=== PATIENT | male | born 1960 | race Caucasian/White ===

== ENCOUNTER 2018-01-30 21:26 | Emergency (ER) | payer MEDICARE ==
[~2018-01-30] VITALS: Ht 177.8 cm; Wt 70.0 kg
[2018-01-30 23:10] VITALS: BP 128/70
== END 2018-01-30 23:15 | disposition home or self-care (01) ==
LOC: ED 23:09
DX: F10.120 Alcohol abuse with intoxication, uncomplicated (principal); Z72.9 Problem related to lifestyle, unspecified; I25.2 Old myocardial infarction
CPT/HCPCS: 36415; 80307; 99283

== ENCOUNTER 2018-03-08 17:40 | Inpatient (IN) | payer MEDICARE ==
[~2018-03-08] VITALS: Ht 177.8 cm; Wt 85.2 kg
[2018-03-08] MEDS ORDERED: ONDANSETRON ODT 4 MG PO ONE (18:00)
--- NOTE | 2018-03-08 18:47 | NUR ---
PT C/O ABD PAIN FOR 2 DAYS WITH NO BM FOR 3 DAYS. PT ALSO C/O N/V FOR 2 DAYS WELL. ABDOMEN IS DISTENEDED AND PT DRINKS 6 BEERS A DAY.
--- NOTE | 2018-03-08 18:48 | NUR ---
2 VIEW ABDOMEN SUGGEST OBSTRUCTION, CT ORDERED.
[2018-03-08 18:50] LABS: MEAN CORPUSCULAR HEMOGLOBIN 35.5 pg (27.5-34.5); MEAN CORPUSCULAR HGB CONC 35.2 g/dL (33.2-36.2); MEAN CORPUSCULAR VOLUME 100.8 fL (81-97); MEAN PLATELET VOLUME 9.5 fL (7.4-10.4); PLATELET COUNT 213 x10^3/uL (130-400); RED BLOOD COUNT 4.35 x10^6/uL (4.38-5.82); RED CELL DISTRIBUTION WIDTH 14.3 % (9.4-14.8)
[2018-03-08 19:02] LABS: ALANINE AMINOTRANSFERASE 39 U/L (12-78); ALBUMIN 3.6 g/dL (3.4-5.0); ANION GAP 10 mmol/L (5-15); CALCIUM 8.8 mg/dL (8.5-10.1); CHLORIDE 95 mmol/L (98-107); CREATININE 0.89 mg/dL (0.7-1.3)
--- NOTE | 2018-03-08 19:03 | NUR ---
PAIN MEDS REQUESTED OF DR. BRODY.
[2018-03-08 19:04] LABS: ALKALINE PHOSPHATASE 128 U/L (45-117); BILIRUBIN,TOTAL 0.9 mg/dL (0.2-1.0); TOTAL PROTEIN 8.1 g/dL (6.4-8.2)
[2018-03-08 19:19] LABS: BASOPHILS # (AUTO) 0.03 x10^3/uL (0-0.1); BASOPHILS % (AUTO) 0 % (0-1); EOSINOPHILS # (AUTO) 0.04 x10^3/uL (0-0.4); EOSINOPHILS % (AUTO) 0 % (1-7); LYMPHOCYTES # (AUTO) 1.65 x10^3/uL (1-3.4); LYMPHOCYTES % (AUTO) 14 % (22-44); MD SCAN; MONOCYTES # (AUTO) 1.62 x10^3/uL (0.2-0.8); MONOCYTES % (AUTO) 14 % (2-9); NEUTROPHILS # (AUTO) 8.11 x10^3/uL (1.8-6.8); NEUTROPHILS % (AUTO) 71 % (42-75)
[2018-03-08] MEDS ORDERED: HALO5TAB5 PO (20:09)
--- NOTE | 2018-03-08 20:09 | NUR ---
ATTEMPTED THREES TIMES TO PASS NG TUBE BUT PT NOT ABLE TO TOLERATE. PT REPORTS HE GAGS AND IS NOT ABLE TO GET IT PAST THE BACK OF THE THROAT. DR. BRODY AWARE AND WILL TELL SURGEON WE WERE NOT ABLE TO PASS NG.
[2018-03-08] MEDS ORDERED: BENZOCAINE 20% SPRAY 0.5ML ONE (20:37)
--- NOTE | 2018-03-08 20:44 | NUR ---
MD ATTEMPTED TO PASS NG TUBE UNSUCCESSFULLY. PT TO GO TO FLOOR THEN IR FOR NG.
[2018-03-08] MEDS ORDERED: ONDANSETRON 2MG/ML, 2ML IVPush PRN (21:00)
[2018-03-08] MEDS ORDERED: POTASSIUM CHLORIDE 40 MEQ in SODIUM CHLORIDE 0.9% 500 ML IV ONE (21:00)
[2018-03-08] MEDS ORDERED: ONDANSETRON ODT 4 MG PO PRN (21:00)
[2018-03-08] MEDS ORDERED: hydrALAzine 20 MG/ML, 1ML IVPush PRN (21:00)
[2018-03-08] MEDS ORDERED: OXYcodone IR 5MG TABLET PO PRN (21:00)
[2018-03-08] MEDS ORDERED: PROMETHAZINE 25 MG/ML, 1ML IM PRN (21:00)
[2018-03-08] MEDS ORDERED: NICOTINE 7 MG/24 HR PATCH.TD24 TD SCH (21:00)
[2018-03-08 21:11] LABS: FREE T4 (FREE THYROXINE) 1.21 ng/dL (0.76-1.46); THYROID STIMULATING HORMONE 3.86 mIU/L (0.358-3.740)
[2018-03-08 21:57] VITALS: BP 119/84
[2018-03-08] MEDS: morphine SULFATE 10 MG/ML, 1ML IVPush PRN (23:04)
[2018-03-08] MEDS: FAMOTIDINE 20 MG/2 ML IVPush SCH (23:04)
[2018-03-08] MEDS ORDERED: OMNIPAQUE 350 MG/ML, 100ML BOTTLE ONE (23:54)
[2018-03-09] MEDS: D5%-0.9% NACL+KCL 20MEQ 1,000 ML IV SCH ×2 (00:08→15:00)
[2018-03-09 03:12] VITALS: BP 137/87
[2018-03-09 06:20] LABS: ALANINE AMINOTRANSFERASE 36 U/L (12-78); ALBUMIN 3.4 g/dL (3.4-5.0); ANION GAP 8 mmol/L (5-15); CALCIUM 8.5 mg/dL (8.5-10.1); CHLORIDE 97 mmol/L (98-107); CHOLESTEROL, TOTAL 124 mg/dL (140-239); CREATININE 0.91 mg/dL (0.7-1.3); TRIGLYCERIDES 94 mg/dL (50-200); VLDL CHOLESTEROL 19 mg/dL (0-25)
[2018-03-09 06:22] LABS: ALKALINE PHOSPHATASE 125 U/L (45-117); BILIRUBIN,TOTAL 0.9 mg/dL (0.2-1.0); CHOL/HDL RATIO 2.5; HDL CHOL % 40 % (26-37); HDL CHOLESTEROL (DIRECT) 49 mg/dL (40-60); LDL CHOLESTEROL,CALCULATED 56 mg/dL (54-169); LDL/HDL RATIO 1.1 (0.5-3.0); TOTAL PROTEIN 7.7 g/dL (6.4-8.2)
[2018-03-09 06:53] LABS: MEAN CORPUSCULAR HEMOGLOBIN 35.7 pg (27.5-34.5); MEAN CORPUSCULAR HGB CONC 35.5 g/dL (33.2-36.2); MEAN CORPUSCULAR VOLUME 100.5 fL (81-97); PLATELET COUNT 205 x10^3/uL (130-400); RED BLOOD COUNT 4.44 x10^6/uL (4.38-5.82)
[2018-03-09 07:29] VITALS: BP 137/81
[2018-03-09 08:04] LABS: BASOPHILS # (AUTO) 0.02 x10^3/uL (0-0.1); BASOPHILS % (AUTO) 0 % (0-1); EOSINOPHILS % (AUTO) 0 % (1-7); LYMPHOCYTES # (AUTO) 0.78 x10^3/uL (1-3.4); LYMPHOCYTES % (AUTO) 7 % (22-44); MD SCAN; MONOCYTES # (AUTO) 1.47 x10^3/uL (0.2-0.8); MONOCYTES % (AUTO) 14 % (2-9); NEUTROPHILS # (AUTO) 8.26 x10^3/uL (1.8-6.8); NEUTROPHILS % (AUTO) 78 % (42-75)
[2018-03-09] MEDS ORDERED: MAGNESIUM SULFATE PMX 2GM/50ML 50 ML IV ONE (09:00)
[2018-03-09] MEDS ORDERED: HALOPERIDOL 5 MG/ML IM SCH (09:00)
[2018-03-09] MEDS: FAMOTIDINE 20 MG/2 ML IVPush SCH (09:32)
[2018-03-09] MEDS: morphine SULFATE 10 MG/ML, 1ML IVPush PRN (09:42)
[2018-03-09 15:09] VITALS: BP 128/84
== END 2018-03-09 16:03 | disposition left against medical advice (07) | DRG 375 ==
LOC: ED 19:13 → EDIP 19:31 → 4NOR 20:50
PROVIDERS: ADMIT Internal Medicine; ATTEND Internal Medicine
DX: C18.9 Malignant neoplasm of colon, unspecified (principal); K56.609 Unspecified intestinal obstruction, unspecified as to partial versus complete obstruction; E87.1 Hypo-osmolality and hyponatremia; E03.9 Hypothyroidism, unspecified; E87.6 Hypokalemia; J42 Unspecified chronic bronchitis; K21.9 Gastro-esophageal reflux disease without esophagitis; K63.89 Other specified diseases of intestine; F17.210 Nicotine dependence, cigarettes, uncomplicated; F20.9 Schizophrenia, unspecified; I25.2 Old myocardial infarction; Z53.21 Procedure and treatment not carried out due to patient leaving prior to being seen by health care provider
CPT/HCPCS: 36415; 74021; 74177; 80053; 80061; 82378; 83036; 83690; 83735; 83930; 84100; 84439; 84443; 85025; 99285; G0378; J2405; J2550; J3480; Q9967; J1630; J2270; J3475; J3490; J7040